=== PATIENT | male | born 1975 | race Two or more races ===

== ENCOUNTER 2021-05-06 16:31 | Emergency (ER) | payer MEDICAID, SELFPAY ==
[2021-05-06 16:49] VITALS: BP 160/96; PULSE 109; RESP 18; TEMP 38.8; O2SAT 99; BMI 36.0
--- NOTE | 2021-05-06 16:53 | XR_ITS ---
PROCEDURE INFORMATION: Exam: XR Chest Exam date and time: 05/06/2021 4:53 PM Age: 45 years old Clinical indication: Cough TECHNIQUE: Imaging protocol: XR of the chest. Views: 2 views. COMPARISON: No relevant prior studies available. FINDINGS: Lungs: Atelectatic changes noted within both lung bases. Pleural spaces: Unremarkable. No pleural effusion. No pneumothorax. Heart/Mediastinum: Unremarkable. No cardiomegaly. Bones/joints: Unremarkable. IMPRESSION: Atelectatic changes noted within both lung bases.
--- NOTE | 2021-05-06 17:02 | HMH.EDUTC ---
[facility] Disposition Clinical Impression: Viral syndrome Acute bronchitis Qualifiers: Bronchitis organism: unspecified organism Qualified Code(s): J20.9 - Acute bronchitis, unspecified Disposition: Home, Self-Care Condition on Discharge: Good Instructions: Acute Bronchitis, DI for Acute Bronchitis, DI for COVID-19 (Suspected or Confirmed ), Preventing the Spread of Coronavirus Discharge Instructions Additional Instructions: Drink plenty of fluids. Take tylenol or ibuprofen for pain or fever. Take the medications as directed. Follow up with your regular doctor. GO TO THE ER FOR ANY WORSENING SYMPTOMS Quarantine until you know the results of your covid-19 test. Notify your school or workplace of your results and follow their instructions regarding return to work/school. Don't start the oral steroids until tomorrow, since you had the shot here today. Prescriptions: Benzonatate [Benzonatate 100mg cap] 100 mg PO TIDP PRN #30 cap PRN Reason: Cough Transmission Status: Received by [id number] methylPREDNISolone [Medrol] 4 mg PO DIRECTED 6 Days #21 packet Transmission Status: Received by [email or web address] guaiFENesin [Mucinex 600mg tablet] 1 - 2 tab PO BIDP PRN #30 tab PRN Reason: Congestion Transmission Status: Received by [email or web address] Azithromycin [Z-Dutch 250mg Tab*] 250 mg PO UD DOSE PK #6 tab Transmission Status: [facility] Referrals: Provider,Referral, MD [Primary Care Provider] - Time of Disposition: 18:07 Medical Decision Making - Medical Records Medical records reviewed: No: I reviewed the patient's medical records. - Simon Inquiry Pt receiving controlled substance: No Vital Signs: 05/06/21 16:49 05/06/21 18:27 Temperature 102 F H 99.9 F H Temperature Source Oral Pulse Rate 109 H Pulse Rate [Left] 109 H Respiratory Rate 18 18 Blood Pressure 160/96 H Blood Pressure [Right Arm] 160/96 H Blood Pressure Mean [Right Arm] 117 02 Sat by Pulse Oximetry 99 - Lab Data Lab results reviewed: Yes: I reviewed the patient's lab results. Lab Results 05/06/21 18:29: Influenza Type A Ag Negative, Influenza Type B Ag Negative Orders (Tests/Meds): ED MEDICATIONS Discontinued Medications Generic Name Dose Route Start Last Admin Trade Name Tevin PRN Reason Stop Dose Admin Ceftriaxone Sodium 1 gm 05/06/21 18:06 05/06/21 18:25 Ceftriaxone 1gm Vial IM 05/06/21 18:07 1 gm ONCE ONE Administration Lidocaine HCl 0 ml 05/06/21 18:06 05/06/21 18:24 Lidocaine 1% 5ml Pf Vial IM 05/06/21 18:07 2 ml ONCE ONE Administration Methylprednisolone Sodium Succinate 125 mg 05/06/21 18:06 05/06/21 18:24 Methylprednisolone Sod Succ 125mg Vial IM 05/06/21 18:07 125 mg ONCE ONE Administration [facility] HPI - General Stated complaint: COUGH,CONGESTION Time Seen by Provider: 05/06/21 17:02 Mode of Arrival: Ambulatory Source of Information: Patient Limitations: No Limitations Description of Symptoms (Recalled from Triage Doc. by RN): pt c/o a productive cough and congestion. HEENT Symptoms (Recalled from RN notes): Yes Resp Symptoms (Recalled from RN notes): Yes Skin Symptoms (Recalled from RN notes): No MS Symptoms (Recalled from RN notes): No Functional Status (Recalled from RN notes): wnl - History of Present Illness Provider Complaint: He states that for the past 2 days he has had chilling, body aches, fever up to 102, productive cough with brownish sputum, and a sore throat. He has not been vaccinated against covid-19 or flu. - Related Data Previous Rx's Medication Instructions Recorded Azithromycin [Z-Dutch 250mg Tab*] 250 mg PO UD DOSE PK #6 tab 05/06/21 Benzonatate [Benzonatate 100mg 100 mg PO TIDP PRN #30 cap 05/06/21 cap] guaiFENesin [Mucinex 600mg tablet] 1 - 2 tab PO BIDP PRN #30 tab 05/06/21 methylPREDNISolone [Medrol] 4 mg PO DIRECTED 6 Days #21 05/06/21 packet Allergi
[2021-05-06 18:27] VITALS: BP 160/96; PULSE 109; RESP 18; TEMP 37.7
[2021-05-06 18:43] LABS: UTC Influenza A Antigen Negative (Negative)
[2021-05-06 18:44] LABS: UTC Influenza B Antigen Negative (Negative)
== END 2021-05-06 18:44 | disposition home or self-care (01) ==
PROVIDERS: Emergency Provider Nurse Practitioner Family
DX: U07.1 COVID-19 (principal); J20.9 Acute bronchitis, unspecified
CPT/HCPCS: 71046; 87804; 99203; C9803; G0463; J0696; U0003; U0005